=== PATIENT | male | born 1975 ===

== ENCOUNTER 2022-10-22 15:38 | Emergency (ER) | payer BC | END 2022-10-22 16:22 | disposition home or self-care (01) | LOC: MERGE 15:38 → DL.ED 15:38 | DX: S40.021A Contusion of right upper arm, initial encounter (principal); E66.9 Obesity, unspecified; Z68.37 Body mass index [BMI] 37.0-37.9, adult; W23.1XXA Caught, crushed, jammed, or pinched between stationary objects, initial encounter | CPT/HCPCS: 73060-RT; 99282; 99283 ==